=== PATIENT | female | born 1980 | race Caucasian/White ===

== ENCOUNTER 2016-06-01 10:13 | Observation (INO) | payer OTHER ==
[2016-05-16 15:16] LABS: BASO % 0.4 %; BASO ABS # 0.02 K/uL (0-0.2); COMPLETE YES; EOS % 1.7 %; HEMATOCRIT 34.7 % (37-47); LYMPH % 29.8 %; LYMPH ABS # 1.37 K/uL (1.2-3.4); MEAN CELL VOLUME 84.8 fL (80-100); MEAN CORPUSCULAR HEMOGLOBIN 27.9 pg (25-34); MEAN CORPUSCULAR HGB CONC 32.9 g/dl (32-36); MEAN PLATELET VOLUME 9.7 fL (7.4-10.4); MONO % 10.9 %; NEUT % 57.2 %; PLATELET COUNT 241 K/uL (130-400); RED BLOOD COUNT 4.09 M/uL (4.2-5.4)
[2016-05-21 14:36] VITALS: BMI 23.0
[~2016-06-01] VITALS: Ht 175.3 cm; Wt 70.5 kg
[2016-06-01] VITALS (8 sets, daily range): BP systolic 101–127; BP diastolic 54–70; PULSE 69–90; TEMP 36.4–37.1; O2SAT 95–100; Ht 175.3 cm; Wt 70.5 kg
[~2016-06-01 10:13] MED LIST: ATROPINE SULFATE 0.1 MG/ML 5ML SYR IV PRN; CEFAZOLIN 2000 MG/60 ML D5W 50 ML IV SCH; EpHEDrine SULFATE INJ 50 MG/ML AMP IV PRN; FENTANYL CITRATE INJ 50 MCG/1 ML 2 ML VIAL IV PRN; FLUO20CA20 PO; HYDROmorphone INJ 1 MG/ML SYR IV PRN; LACTATED RINGER'S 1000ML 1,000 ML IV SCH; ONDANSETRON INJ 2 MG/ML 2 ML VIAL IV PRN
[2016-06-01] MEDS ORDERED: MIDAZOLAM HCL 1 MG/ML 2ML VIAL ONE (10:35)
[2016-06-01] MEDS ORDERED: FENTANYL CITRATE INJ 50 MCG/1 ML 2 ML VIAL ONE ×2 (10:35→13:57)
[2016-06-01] MEDS ORDERED: HYDROmorphone INJ 2 MG/ML SYR/VIAL ONE (10:35)
[2016-06-01] MEDS ORDERED: SODIUM CHLORIDE 0.9% INJ 10 ML VIAL ONE (10:36)
--- NOTE | 2016-06-01 11:17 | History & Physical Bridge Note ---
H&P Re-Evaluation Bridge Note: I have examined the patient, reviewed the History & Physical and in the interval since the performance of the History & Physical I have noted the following changes of clinical significance: No changes noted
[2016-06-01] MEDS ORDERED: METHYLENE BLUE 0.5% 10 ML VIAL ONE (11:25)
[2016-06-01] MEDS ORDERED: BUPIVACAINE 0.5 % 5 MG/1 ML MPF 30ML VIAL ONE (11:25)
[2016-06-01] MEDS ORDERED: ROCURONIUM BROMIDE 10 MG/ML 5 ML VIAL ONE (12:36)
[2016-06-01] MEDS ORDERED: NEOSTIGMINE METHYLSULFATE 5 MG/5 ML SYR ONE (12:36)
[2016-06-01] MEDS ORDERED: DEXAMETHASONE SOD INJ 4 MG/ML VIAL ONE (12:36)
[2016-06-01] MEDS ORDERED: DiphenhydrAMINE HCL 50 MG/ML VIAL ONE (12:36)
[2016-06-01] MEDS ORDERED: PROPOFOL IV EMULSION 10 MG/ML 20 ML VIAL IV ONE (12:36)
[2016-06-01] MEDS ORDERED: LIDOCAINE HCL 2% 2 ML VIAL (20MG/ML) ONE (12:36)
[2016-06-01] MEDS ORDERED: EpHEDrine SULFATE 50MG/5ML SYR ONE (12:36)
[2016-06-01] MEDS ORDERED: ONDANSETRON INJ 2 MG/ML 2 ML VIAL ONE (12:36)
[2016-06-01] MEDS ORDERED: METOCLOPRAMIDE HCL INJ 5 MG/ML 2 ML VIAL ONE (12:36)
[2016-06-01] MEDS ORDERED: GLYCOPYRROLATE INJ 0.2 MG/ML VIAL ONE (12:36)
--- NOTE | 2016-06-01 13:41 | Discharge Instructions ---
Discharge Instructions Admission Reason for Admission: Abnormal Uterine Bleeding Discharge Discharge Diagnosis / Problem: after surgery Discharge Goals Goal(s): Routine recovery after surgery Activity Recommendations Activity Limitations: as noted below . Instructions / Follow-Up Instructions / Follow-Up POST OPERATIVE: BOWEL FUNCTION/MEDICATIONS: 1. Constipation pain and discomfort are the most common complaints 5-7 days after surgery. Points 2-6 address the things that can help. 2. Chewing gum can help stimulate the gut and help improve digestion and motility. 3. Milk of Magnesia 1-2 times per day until return of bowel function. 4. Colace is a stool softener that helps. Taking this 2-3 times per day until bowel function returns to normal is highly recommended. 5. Dulcolax is a laxative that may be used if several days have passed without a bowel movement. Alternatively Miralax may be used daily instead. 6. Drink plenty of fluids as this will also reduce constipation. 7. Narcotic pain medications will be prescribed by your physician. They are safe to use and we encourage you to use them. If you are not allergic, ibuprofen will also be prescribed. Many patients will be able to transition off of the narcotic medications to ibuprofen by postoperative day 3. ACTIVITY RECOMMENDATIONS: 1. Get plenty of rest and listen to your body. If you are tired, take a nap. 2. You may shower, but do not take a tub bath until you see your doctor at the 2 week post operative visit. 3. Absolutely NO intercourse and nothing in the vagina until you are examined by your doctor at the 8 week visit. At that visit it will be determined when such activities can be resumed. This can range from 6-12 weeks after your surgery depending on healing time. 4. The main physical activity in the first week should be walking. By the second week you can slowly increase activity. There are no limits on walking up and down stairs. 5. Do not lift more than 5-10 lbs for 4 weeks. Remember the "one-handed rule", i.e. if you can lift something with only one hand it's likely okay. 6. Minimize mix mill tender like vacuuming and exercising for 4 weeks. "Overdoing it" can lead to incisions not healing, pain and vaginal bleeding , so again, listen to your body. 7. Driving can be resumed when you feel able. Do not drive within 24 hours of taking a narcotic medication. EXPECTATIONS: 1. Vaginal spotting, bleeding and discharge are common after surgery. There may even be an odor to the discharge which is often related to sutures used in the vagina. If you experience heavy vaginal bleeding, call the office number day or night [phone]. 2. Bladder discomfort is common after surgery from the catheter. This usually resolves in 1-2 weeks. 3. By the end of the 3rd or 4th week you should be feeling much better. It may take up to 6 weeks for your energy levels to return to normal. 4. Narcotic medications have side effects such as: dizziness, headache, nausea and/or vomiting. If you suspect your pain medication is causing problems, call our office and we may be able to prescribe an alternate medication. 5. The skin incisions are often covered with a liquid bandage. This will gradually peel off over time. CALL THE OFFICE IF YOU HAVE ANY OF THE FOLLOWIN. Temperature of 101 degrees or higher. 2. Severe abdominal or pelvic pain not relieved by pain medication. 3. Persistent nausea or vomiting. 4. Increased pain with urination or difficulty urinating. 5. Bright red bleeding that soaks more than 1 pad per hour. CONTACT PHONE NUMBERS: Main Office: [phone] Surgical Nurse: [phone] extension [phone] FOLLOW-UP: Post-Operative Appointments: * Individual instructions will have been given about the timing of your first examination, but this is usually at the end of the second week home. * You will need to call the office at soon after discharge to make the appointment for your post-op check-up if it has not already been scheduled. * Additional information regarding activity, sexual intercourse and when to return to work will be given at this appointment. WE WISH YOU A SPEEDY RECOVERY! Current Hospital Diet Patient's current hospital diet: Discharge Diet Recommended Diet: Regular Diet Procedures Procedures Performed: Total Laparoscopic Hysterectomy Bilateral Salpingectomy Robot Assist, Cystoscopy Pending Studies Studies pending at discharge: yes List of pending studies: pathology reports Medical Emergencies . Who to Call and When: Medical Emergencies: If at any time you feel your situation is an emergency, please call 911 immediately. . Non-Emergent Contact Non-Emergency issues call your: Primary Care Provider, Title Assistant Call Non-Emergent contact if: you have a fever, your pain is not controlled, you have any medication questions . . "Provider Documentation" section prepared by Tameka Warren. VTE Core Measure Inpt VTE Proph given/why not?: Treatment not indicated
[2016-06-01] MEDS ORDERED: KETOROLAC TROMETHAMINE 30 MG/ML VIAL IV. PRN (13:45)
[2016-06-01] MEDS ORDERED: ONDANSETRON INJ 2 MG/ML 2 ML VIAL IV PRN (13:45)
[2016-06-01] MEDS ORDERED: SIMETHICONE 80 MG CHEW PO PRN (13:45)
[2016-06-01] MEDS ORDERED: ACETAMINOPHEN 325 MG TAB PO PRN (13:45)
[2016-06-01] MEDS ORDERED: ZOLPIDEM TARTRATE 5 MG TAB PO PRN (13:45)
[2016-06-01] MEDS ORDERED: OXYCODONE/ACETAMINOPHEN 5-325 TAB PO PRN (13:45)
[2016-06-01] MEDS ORDERED: OXYC-57 PO (13:46)
[2016-06-01] MEDS ORDERED: MTR600X PO (13:46)
--- NOTE | 2016-06-01 13:48 | [facility] Post Operative Brief Note ---
Immediate Operative Summary Operative Date Jun 01, 2016. Pre-Operative Diagnosis 1. Abnormal Uterine bleeding 2. Anemia Post-Operative Diagnosis Same as preop Procedure(s) Performed Total Laparoscopic Hysterectomy, Bilateral Salpingectomies, Robotic Assistance, Cystoscopy Surgeon Dr. Warren Drawer Hardware Worker Surgeon(s) Dr. Washington Estimated Blood Loss 25 ML Findings uterus small mobile, nl ovaries bilaterally, nl appendix and liver edge. Fluids (cc crystalloids) 1300 Specimens A. Cervix, Uterus, Bilateral Fallopian Tubes Drains reid Anesthesia general Complication(s) None Disposition Recovery Room / PACU
--- NOTE | 2016-06-01 14:19 | OPERATIVE REPORT ---
DATE OF OPERATION: 06/01/2016 PREOPERATIVE DIAGNOSES: 1. Abnormal uterine bleeding. 2. Anemia. POSTOPERATIVE DIAGNOSES: Same. PROCEDURES: 1. Total laparoscopic hysterectomy. 2. Bilateral salpingectomies. 3. Robotic assistance. 4. Cystoscopy. SURGEON: Dr. Tameka Warren. MUNICIPAL MAINTENANCE WORKER: Dr. Mckya Washington. IV FLUIDS: 1300 mL. ESTIMATED BLOOD LOSS: 25 mL. ANESTHESIA: General. URINE OUTPUT: 100 mL. FINDINGS: Uterus is mobile, sounds to approximately 8-9 cm. Bilateral ovaries and fallopian tubes normal. Normal liver edge, normal appendix. Cystoscopy findings - normal bladder filling and normal ureteral jets. INDICATIONS: A 36-year-old 2, para 2 with a history of abnormal uterine bleeding that is disruptive to her lifestyle and history of anemia who desires definitive surgical therapy. She had had a tubal ligation and was done childbearing. She has a uterine cavity that we have been unable to sample despite attempts for endometrial biopsy in the office. She is aware of all of her treatment options and desires definitive surgical therapy. PROCEDURE: The patient taken to the operating room and identified. After adequate general anesthesia was obtained, she was placed in the dorsal lithotomy position and prepped and draped in the usual sterile fashion. Attention was turned to the patient's vagina where a weighted speculum and anterior retractor were placed to visualize the cervix and it was grasped in its anterior lip with an Allis clamp. A single interrupted suture of 0 Vicryl was placed at the 3 o'clock position and tied down. The bladder had already been drained of clear yellow urine and a Espitia catheter was kept in place. The cervix was sequentially dilated using Bonny dilators and the uterus was sounded to 8-9 cm. The VCare uterine manipulator device was gently placed through the cervical os into the uterine cavity and a balloon was inflated. The suture material was tied down to the initial cup and stabilizing cup was placed to allow for uterine manipulation. All the retracting instruments were removed. Attention was then turned to the patient's abdomen. A supraumbilical skin incision was made with a scalpel. The Veress needle was placed intraperitoneally with an opening pressure of 3 mmHg. A CO2 pneumoperitoneum was created. The patient was placed in steep Trendelenburg. Two da Zully trocar sites left and right of the midline were created by first creating skin incisions and then placing under direct visualization, the da Zully trocars. The bowel was teased away from the planned operative field. There was a filmy adhesion of the omentum to the anterior abdominal wall on the left. This was presumably related to the patient's prior history of umbilical hernia repair. At this point, the laparoscope was removed. The da Zully robot was brought to the patient's bedside. The appropriate instrument arms were connected to the appropriate trocars. The camera was introduced. Bipolar cautery was brought through #2 and a monopolar vinh through the instrument arm #1. They were brought into the pelvis under direct visualization. The surgeon then went to the console. The filmy adhesion to the anterior abdominal wall and the omentum was taken down and by coagulation and cutting. Uterus was manipulated and the ureters were seen coursing well away from the planned operative sites. The left round ligament, uterine ovarian and fallopian tube complex was taken down with bipolar coagulation and then with cutting using the monopolar vinh. The broad ligaments were opened up into anterior and posteriorly and the bladder flap was begun from the left side. The bladder was cleared well away from the planned operative sites and the uterine artery pedicle was skeletonized. It was coagulated. Attention was then turned to the patient's right adnexal region. The round ligament, fallopian tube and ovarian ligament complex was coagulated and transected in a sequential fashion similarly. The anterior and posterior leaves of the broad ligament were opened up into and the bladder flap was begun from the right side. It was taken across the midline towards the left. The bladder was pushed well away from the planned operative sites. The uterine artery pedicle was coagulated and transected on this side. The cardinal ligament attachments were further coagulated and transected. The bladder flap had some scar tissue, but this was taken down carefully with both blunt and sharp dissection. The bladder was cleared well away from the planned operative site on the right side. Attention was returned to the left uterine artery pedicle, which was recoagulated and transected. The cardinal ligament attachments were further taken down on that side to clear away the tissue for the planned colpotomy site. The bladder was further dissected on this side across the midline and was clearly deflected away from the planned colpotomy site. It was at this time that the colpotomy was begun. It was begun posteriorly and continued circumferentially following the VCare cup until the specimen was completely mobilized. The specimen was then brought out through the vagina. A sponge was placed into the vagina. This allowed for maintenance of the pneumoperitoneum. Both fallopian tubes were identified and transected with coagulation and cutting. The fallopian tubes were removed vaginally. The #1 instrument arm was replaced with a large needle chuck wagon driver. The 2-0 V-Loc 90 suture was brought into the abdomen through the vagina. The cuff was then closed in the routine fashion using the suture material and it was appropriately back stitched. The suture material was then cut and the needle was removed from the abdomen. This was via instrument arm #1 that had been undocked. The sponge was removed from the vagina and maintenance of the pneumoperitoneum took place. The pelvis was irrigated. Methylene blue IV had been administered. A cystoscopy was performed with normal bladder filling and normal ureteral jets and no evidence of suture material within the bladder. The CO2 pneumoperitoneum was taken down and there were no active bleeding sites. As mentioned, the pelvis had already been irrigated. At this point, the procedure was terminated. The da Zully robot was disconnected from the trocars and moved away from the patient's bedside. The CO2 gas was allowed to escape from the patient's abdomen and the trocars were removed. A new Espitia catheter had been placed under sterile conditions. The supraumbilical skin incision was reapproximated at the level of fascia with care with a single interrupted suture of 0 Vicryl. All skin incisions were injected with Marcaine and then was closed in a subcuticular fashion using 4-0 Vicryl. The patient was returned to the supine position. She was awoken from anesthesia and transported to the recovery room in stable condition. All sponge, lap and needle counts were correct x2. I attest to the content of the Intraoperative Record and any orders documented therein. Any exceptions are noted below. MTDD
--- NOTE | 2016-06-01 14:28 | Anesthesiology Progress Note ---
Anesthesia Post Op Note Date & Time Jun 01, 2016 at 14:29 Vital Signs Pain Intensity: 5.0 Vital Signs Past 12 Hours Date Time Temp Pulse Resp B/P Pulse Ox O2 Delivery O2 Flow Rate FiO2 06/01/16 14:23 37.1 06/01/16 14:20 56 15 100 06/01/16 14:20 56 15 06/01/16 14:18 108/63 06/01/16 14:15 67 16 100 06/01/16 14:15 67 16 06/01/16 14:13 100/56 06/01/16 14:10 53 16 100 06/01/16 14:10 52 16 06/01/16 14:09 52 17 100 06/01/16 14:09 51 17 06/01/16 14:08 100/51 06/01/16 14:05 99/51 06/01/16 14:04 56 18 06/01/16 14:04 18 06/01/16 14:03 89/48 06/01/16 13:59 54 16 100 06/01/16 13:59 54 16 06/01/16 13:58 56 16 91/48 100 06/01/16 13:58 55 16 06/01/16 13:53 58 13 97/55 100 06/01/16 13:53 58 13 06/01/16 13:48 55 16 94/53 100 06/01/16 13:48 56 16 06/01/16 13:43 60 20 96/53 100 06/01/16 13:43 36.6 75 16 96/53 100 Mask 10 06/01/16 13:43 59 20 06/01/16 10:43 36.8 90 16 127/70 100 Notes Mental Status: alert / awake / arousable, participated in evaluation Pt Amnestic to Procedure: Yes Nausea / Vomiting: adequately controlled Pain: adequately controlled Airway Patency, RR, SpO2: stable & adequate BP & HR: stable & adequate Hydration State: stable & adequate Anesthetic Complications: no major complications apparent
[2016-06-01] MEDS ORDERED: IV FLUIDS COMPLETED PRN (15:30)
[2016-06-01] MEDS: IBUPROFEN 600 MG TAB PO PRN (17:44)
[2016-06-01] MEDS: DOCUSATE SODIUM 100 MG CAP PO SCH (20:31)
[2016-06-01] MEDS: OXYCODONE/ACETAMINOPHEN 5-325 TAB PO PRN (23:41)
[2016-06-02 04:05] VITALS: BP 103/62; PULSE 58; TEMP 36.9; O2SAT 97
[2016-06-02] MEDS: IBUPROFEN 600 MG TAB PO PRN (04:16)
[2016-06-02] MEDS: OXYCODONE/ACETAMINOPHEN 5-325 TAB PO PRN (04:17)
[2016-06-02 07:15] VITALS: BP 104/64; PULSE 75; TEMP 37; O2SAT 97
--- NOTE | 2016-06-02 07:36 | Progress Note ---
Progress Note s/ doing well. has not walked in halls. was very sleepy yesterday. no much appetite yesterday but ready for breakfast. voiding. no pain issues. no cp/sob/n /v 0/ af vss cor rrr, lungs ctab, abd soft incisions c/d/i, nt, ext nt calves a/ pod#1 s/p TLH p/ doing well, d/c home after eats breakfast. f/u 2wks. instructions reviewed. scripts on chart. reviewed surgery with pt.
--- NOTE | 2016-06-02 08:14 | DISCHARGE SUMMARY ---
ADMISSION DIAGNOSES: 1. Abnormal uterine bleeding. 2. Anemia. DISCHARGE DIAGNOSES: Same. PROCEDURE: 1. Total laparoscopic hysterectomy. 2. Bilateral salpingectomies. 3. Robotic assistance. 4. Cystoscopy. BRIEF HISTORY AND HOSPITAL COURSE: A 36-year-old with abnormal uterine bleeding and history of anemia who desired definitive surgical therapy. The patient underwent an attempted preoperative endometrial biopsy excreting but this was unsuccessful. She does have fluid in her scar per ultrasound. Overall, her uterine size was normal. She was given options to include medications, IUD, ablation and hysterectomy and desires the latter. She underwent the above-stated procedures without incident. The estimated blood loss was 25 mL. Her postop recovery and course was uncomplicated. She was tolerating a regular diet and voiding without difficulty with her pain well controlled on her discharge date. She was given appropriate postoperative instructions as well as prescriptions and instructed to call with any concerns. She is to follow up in 2 weeks' time.
[2016-06-02] MEDS: DOCUSATE SODIUM 100 MG CAP PO SCH (08:22)
[2016-06-02 08:40] VITALS: BP 104/64; PULSE 75; TEMP 37; O2SAT 97
== END 2016-06-02 11:40 | disposition home or self-care (01) ==
LOC: ENRESERVTM → ENRESERVDT → C.ACU 10:13 → C.MS4N 10:47 → INTOOBSV 10:47
PROVIDERS: ADMIT Obstetrics & Gynecology; ATTEND Obstetrics & Gynecology
DX: N93.9 Abnormal uterine and vaginal bleeding, unspecified (principal); D64.9 Anemia, unspecified; F41.9 Anxiety disorder, unspecified; Z98.51 Tubal ligation status; Z79.899 Other long term (current) drug therapy; Z82.49 Family history of ischemic heart disease and other diseases of the circulatory system; Z83.3 Family history of diabetes mellitus; Z80.0 Family history of malignant neoplasm of digestive organs

== ENCOUNTER → 2016-12-07 | Outpatient (CLI) | payer OTHER ==
[~2016-12-07] MED LIST changes: -ATROPINE SULFATE 0.1 MG/ML 5ML SYR IV PRN; -CEFAZOLIN 2000 MG/60 ML D5W 50 ML IV SCH; -EpHEDrine SULFATE INJ 50 MG/ML AMP IV PRN; -FENTANYL CITRATE INJ 50 MCG/1 ML 2 ML VIAL IV PRN; -HYDROmorphone INJ 1 MG/ML SYR IV PRN; -LACTATED RINGER'S 1000ML 1,000 ML IV SCH; +MTR600X PO; -ONDANSETRON INJ 2 MG/ML 2 ML VIAL IV PRN; +OXYC-57 PO
[2016-12-07 09:46] LABS: BASO % 0.5 %; BASO ABS # 0.02 K/uL (0-0.2); COMPLETE YES; EOS % 2.2 %; HEMATOCRIT 38.6 % (37-47); IG% 0.2 %; LYMPH % 29.5 %; LYMPH ABS # 1.23 K/uL (1.2-3.4); MEAN CELL VOLUME 92.1 fL (80-100); MEAN CORPUSCULAR HGB CONC 34.7 g/dl (32-36); MEAN PLATELET VOLUME 9.4 fL (7.4-10.4); MONO % 8.9 %; NEUT % 58.7 %; PLATELET COUNT 247 K/uL (130-400); RED BLOOD COUNT 4.19 M/uL (4.2-5.4); WHITE BLOOD COUNT 4.17 K/uL (4.8-10.8)
[2016-12-07 10:16] LABS: ALT/SGPT 20 U/L (12-78); AST/SGOT 16 U/L (15-37); BLOOD UREA NITROGEN 14 mg/dl (7-18); BUN/CREATININE RATIO 15.3 (10-20); CALCIUM 8.9 mg/dl (8.5-10.1); CARBON DIOXIDE 30 mmol/L (21-32); CHLORIDE 107 mmol/L (98-107); CHOLESTEROL 171 mg/dl (0-200); CREATININE 0.94 mg/dl (0.60-1.20); GLUCOSE 94 mg/dl (70-99); POTASSIUM 4.2 mmol/L (3.5-5.1); SODIUM 140 mmol/L (136-145); TRIGLYCERIDES 58 mg/dl (0-150); VERY LOW DENSITY LIPOPROT CALC 12 mg/dl
[2016-12-07 10:19] LABS: ALB/GLOB RATIO 1.1 (0.9-2); ALKALINE PHOSPHATASE 58 U/L (45-117); CHOLESTEROL/HDL RATIO 2.8; HDL CHOLESTEROL 61 mg/dl
== END | disposition home or self-care (01) ==
LOC: C.LAB1850 08:24
PROVIDERS: ATTEND Internal Medicine
DX: Z00.00 Encounter for general adult medical examination without abnormal findings (principal); R19.09 Other intra-abdominal and pelvic swelling, mass and lump

== ENCOUNTER → 2017-08-28 | Outpatient (CLI) | payer OTHER ==
[2017-08-28 12:22] LABS: GLUCOSE,FASTING 85 mg/dl (70-99)
[2017-08-28 12:28] LABS: CHOLESTEROL 141 mg/dl (0-200); LDL CHOLESTEROL (DIRECT) 91 mg/dl
== END | disposition home or self-care (01) ==
LOC: C.LABBFT 08:46
PROVIDERS: ATTEND Internal Medicine
DX: Z13.220 Encounter for screening for lipoid disorders (principal); Z13.1 Encounter for screening for diabetes mellitus